=== PATIENT | female | born 2005 | race Caucasian/White ===

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

== ENCOUNTER → 2025-03-10 | Outpatient (REF) | payer BC, OTHER | LOC: M LAB REF 10:35 | PROVIDERS: ATTEND Physician Assistant | DX: K13.0 Diseases of lips (principal) ==